=== PATIENT | male | born 1965 | race Caucasian/White ===

== ENCOUNTER → 2018-03-14 06:47 | Outpatient (CLI) | payer OTHER, SELFPAY ==
[2018-03-14 07:57] LABS: Cholesterol 196 mg/dL (140-199); HDL Cholesterol 51 mg/dL (40-60); LDL Cholesterol Calculated 127 mg/dL (<100); Triglycerides 91 mg/dL (35-150)
[2018-03-14 08:30] LABS: TSH w/ Reflex to FT4 2.36 uIU/mL (0.47-4.68)
== END ==
PROVIDERS: PCP Family Medicine; Visit Provider Family Medicine
DX: E78.00 Pure hypercholesterolemia, unspecified (principal); E78.5 Hyperlipidemia, unspecified; I65.23 Occlusion and stenosis of bilateral carotid arteries
CPT/HCPCS: 36415; 80061; 84443

== ENCOUNTER → 2018-08-08 06:57 | Outpatient (CLI) | payer OTHER, SELFPAY ==
[2018-08-08 08:51] LABS: Add Manual Diff / Slide Review NO; Basophils Percent Auto 1.3 % (0-2); Eosinophils Percent Auto 3.7 % (2-4); Hematocrit 42.9 % (41-53); Hemoglobin 14.6 g/dL (13.5-17.5); Lymphocytes Percent Auto 36.4 % (25-40); Mean Corpuscular HGB Conc 34.1 % (30-36); Mean Corpuscular Hemoglobin 32.9 PG (26-34); Mean Corpuscular Volume 96.3 fL (80-100); Monocytes Percent Auto 12.2 % (3-14); Neutrophils Absolute Auto 2700 /uL (3000-5900); Neutrophils Percent Auto 46.4 % (50-75); Platelet Count 366 X10^3/uL (150-400); Red Blood Cell Count 4.45 X10^6/uL (4.5-5.9); Red Cell Distribution Width 12.9 % (11.6-14.8); White Blood Cell Count 5.7 X10^3/uL (4.5-11.0)
[2018-08-08 09:05] LABS: Erythrocyte Sedimentation Rate 4 MM/HR (0-15)
[2018-08-08 12:12] LABS: Alanine Aminotransferase 43 IU/L (21-72); Albumin 4.4 g/dL (3.5-5.0); Albumin Globulin Ratio 1.5 (1.0-2.8); Alkaline Phosphatase 79 U/L (38-126); Aspartate Aminotransferase 49 IU/L (17-59); BUN Creatinine Ratio 14.4 (6-22); Bilirubin Total 0.3 mg/dL (0.2-1.3); Blood Urea Nitrogen 13 mg/dL (9-20); Calcium 9.3 mg/dL (8.4-10.2); Carbon Dioxide 24 mmol/L (22-32); Chloride 105 mmol/L (98-107); Estimated Glomerular Filt Rate > 60.0 mL/min (>60); Glucose 120 mg/dL (70-100); HEMOLYSIS < 15 (0-50); Potassium 4.5 mmol/L (3.4-5.1); Sodium 143 mmol/L (137-145); Total Protein 7.4 g/dL (6.3-8.2)
[2018-08-08 12:14] LABS: C-Reactive Protein Quant < 0.5 mg/dL (<1.0); Rheumatoid Factor < 8.6 IU/mL (<12.0)
[2018-08-10 12:01] LABS: CCP Antibody (IgG) < 16 Units (< 20)
== END ==
PROVIDERS: Internal Medicine; PCP Family Medicine; Visit Provider Family Medicine
DX: M25.542 Pain in joints of left hand (principal)
CPT/HCPCS: 36415; 80053; 83516; 85025; 85651; 86140; 86430

== ENCOUNTER → 2019-01-16 07:04 | Outpatient (CLI) | payer OTHER, SELFPAY ==
[2019-01-16 08:16] LABS: Add Manual Diff / Slide Review NO; Basophils Absolute Auto 100 /uL (0-100); Basophils Percent Auto 1.1 % (0-2); Eosinophils Absolute Auto 100 /uL (0-450); Eosinophils Percent Auto 2.5 % (2-4); Hematocrit 43.7 % (41-53); Hemoglobin 14.6 g/dL (13.5-17.5); Lymphocytes Absolute Auto 2200 /uL (1100-4500); Lymphocytes Percent Auto 45.4 % (25-40); Mean Corpuscular HGB Conc 33.5 % (30-36); Mean Corpuscular Hemoglobin 31.7 PG (26-34); Mean Corpuscular Volume 94.5 fL (80-100); Monocytes Absolute Auto 600 /uL (0-900); Monocytes Percent Auto 11.9 % (3-14); Neutrophils Absolute Auto 1900 /uL (1500-7000); Neutrophils Percent Auto 39.1 % (50-75); Platelet Count 312 X10^3/uL (150-400); Red Blood Cell Count 4.62 X10^6/uL (4.5-5.9); Red Cell Distribution Width 13.3 % (11.6-14.8); White Blood Cell Count 4.8 X10^3/uL (4.5-11.0)
[2019-01-16 08:26] LABS: Alanine Aminotransferase 40 IU/L (21-72); Albumin 4.7 g/dL (3.5-5.0); Albumin Globulin Ratio 1.4 (1.0-2.8); Alkaline Phosphatase 68 U/L (38-126); Aspartate Aminotransferase 57 IU/L (17-59); Bilirubin Total 0.6 mg/dL (0.2-1.3); Blood Urea Nitrogen 17 mg/dL (9-20); Calcium 9.4 mg/dL (8.4-10.2); Carbon Dioxide 25 mmol/L (22-32); Chloride 104 mmol/L (98-107); Cholesterol 160 mg/dL (140-199); Estimated Glomerular Filt Rate > 60.0 mL/min (>60); Globulin 3.4 g/dL (1.7-4.1); Glucose 96 mg/dL (70-100); HDL Cholesterol 47 mg/dL (40-60); HEMOLYSIS < 15 (0-50); LDL Cholesterol Calculated 97 mg/dL (<100); Potassium 4.3 mmol/L (3.4-5.1); Sodium 139 mmol/L (137-145); Total Protein 8.1 g/dL (6.3-8.2); Triglycerides 78 mg/dL (35-150)
[2019-01-16 09:55] LABS: Thyroid Stimulating Hormone 1.54 uIU/mL (0.47-4.68)
== END ==
PROVIDERS: PCP Family Medicine; Visit Provider Family Medicine
DX: E78.5 Hyperlipidemia, unspecified (principal); I65.23 Occlusion and stenosis of bilateral carotid arteries; K21.9 Gastro-esophageal reflux disease without esophagitis; Z13.6 Encounter for screening for cardiovascular disorders
CPT/HCPCS: 36415; 80053; 80061; 84443; 85025

== ENCOUNTER 2019-04-06 12:55 | Emergency (ER) | payer OTHER, SELFPAY ==
[2019-04-06 13:02] VITALS: BP 166/99; PULSE 86; RESP 20; TEMP 36.5; O2SAT 98
--- NOTE | 2019-04-06 13:24 | ED.SKABFB ---
HPI - Skin/Abscess/Foreign Bdy <IQRA Isaac-BC - Last Filed: 04/06/19 14:31> General Chief complaint: Skin/Abscess/Foreign Body Stated complaint: Infection on rt side of face Time Seen by Provider: 04/06/19 13:03 Source: patient Mode of arrival: ambulatory Limitations: no limitations History of Present Illness HPI narrative: The patient is a 54-year-old male former smoker with history of hyperlipidemia who presents with a chief complaint of a right-sided sinus infection. He states that he has been congested and coughing for the past 2 weeks or so. He states he got worse last Sunday with severe sinus pain. He has tried [id number] medications including Sudafed. He denies any fevers nausea vomiting or diarrhea. He states that since he has no splenius more susceptible to infections. He states he is having. I will it sinus drainage, pain in his right sinuses and pressure in his right ear. His sinus pain is worse if he leans forward. He states the pain radiates to his jaw and teeth. Related Data Previous Rx's Medication Instructions Recorded cyclobenzaprine 10 mg tablet 10 mg PO TIDP PRN #30 tab 05/24/18 famotidine 20 mg tablet 20 mg PO QDAY #30 tab 05/24/18 simvastatin 80 mg tablet 40 mg PO HS #45 tab 05/24/18 acyclovir 400 mg tablet 400 mg PO BID #60 tab 01/02/19 amoxicillin 875 mg-potassium 1 tab PO BID #14 tab 02/17/19 clavulanate 125 mg tablet doxycycline hyclate 100 mg PO BID #20 tab 04/06/19 Allergies Allergy/AdvReac Type Severity Reaction Status Date / Time No Known Drug Allergies Allergy Verified 01/31/19 14:01 Review of Systems <IQRA Isaac-BC - Last Filed: 04/06/19 14:31> Review of Systems GENERAL: Denies chills, fatigue, malaise, fever, sweats. HEENT: See HPI RESPIRATORY: See HPI CARDIOVASCULAR: Denies chest pain, palpitations, orthopnea, edema, GASTROINTESTINAL: Denies nausea, vomiting, abdominal pain, diarrhea, constipation, melena. : Denies dysuria, frequency, incontinence, hematuria, urinary retention. MUSCULOSKELETAL: denies weakness, joint pain, or bony pain SKIN: Denies rash, skin lesions, or other NEUROLOGIC: Denies weakness, headache, numbness, change in speech, confusion, seizures, incoordination. PSYCHIATRIC: No concerning psychosocial issues. 12 point review of systems is negative except for those stated above PFSH <ELENA Isaac - Last Filed: 04/06/19 14:31> Medical History Carotid artery disease (Chronic 2010) Stenosis of right internal carotid artery (Chronic 2010) Surgical History Anesthesia (Resolved) History of nasal surgery (Resolved 1981) History of shoulder surgery (Resolved 2002) History of splenectomy (Resolved 1984) Status post hernia repair (Resolved 1977) Status post total hip resurfacing (Resolved 06/2017) Social History marital status: Smoking Status: Former smoker alcohol intake: current (1-2 A DAY ) substance use type: does not use Social History marital status: Smoking Status: Former smoker alcohol intake: current (1-2 A DAY ) substance use type: does not use Exam <ELENA Isaac - Last Filed: 04/06/19 14:31> Narrative Exam Narrative: GENERAL: This is a well-nourished, well-developed patient, in no acute distress HEAD: Atraumatic. Normocephalic. No temporal or scalp tenderness. EYES: Pupils equal round and reactive. Extraocular motions intact. No scleral icterus. No injection or drainage. ENT: Nose without bleeding, purulent drainage or septal hematoma. Throat without erythema, tonsillar hypertrophy or exudate. Uvula midline. Airway patent. Bilateral TMs pearly white. Pain to palpation maxillary and frontal sinuses on the right side. NECK: Trachea midline. Bilateral anterior lymphadenopathy noted Supple, nontender, no meningeal signs. CARDIOVASCULAR: Regular rate and rhythm RESPIRATORY: Clear to auscultation. Breath sounds equal bilaterally. No wheezes, rales, or rhonchi. No cough. No increased respiratory effort. No accessory muscle use. EXTREMITIES: No clubbing, cyanosis, or edema. No joint tenderness, effusion, or edema noted. BACK: Nontender without deformity or crepitance. No flank tenderness. NEURO: AOx3. SKIN: No rash or erythema. Initial Vital Signs Initial Vital Signs: Vital Signs Temperature 97.7 F 04/06/19 13:02 Pulse Rate 86 04/06/19 13:02 Respiratory Rate 20 04/06/19 13:02 Blood Pressure 166/99 H 04/06/19 13:02 Pulse Oximetry 98 04/06/19 13:02 <Nena Winters DO - Last Filed: 04/06/19 19:13> Initial Vital Signs Initial Vital Signs: Vital Signs Temperature 97.7 F 04/06/19 13:02 Pulse Rate 86 04/06/19 13:02 Respiratory Rate 20 04/06/19 13:02 Blood Pressure 166/99 H 04/06/19 13:02 Pulse Oximetry 98 04/06/19 13:02 Course <ELENA Isaac - Last Filed: 04/06/19 14:31> Vital Signs - 8 hr 04/06/19 13:02 04/06/19 13:59 Temperature 97.7 F Pulse Rate 86 74 Respiratory Rate 20 20 Blood Pressure 166/99 H 131/85 Pulse Oximetry 98 96 <Nena Winters DO - Last Filed: 04/06/19 19:13> Vital Signs - 8 hr 04/06/19 13:02 04/06/19 13:59 Temperature 97.7 F Pulse Rate 86 74 Respiratory Rate 20 20 Blood Pressure 166/99 H 131/85 Pulse Oximetry 98 96 MDM - Skin/Abscess/Foreign Bdy <ELENA Isaac - Last Filed: 04/06/19 14:31> ECG Data Pacemaker function: pacemaker associated dysrhythmia MDM Narrative Medical decision making narrative: The patient is a 54-year-old male who presents with a chief complaint of sinus symptoms. He has had these symptoms ongoing for several weeks. Chart review illustrate that he received Augmentin for similar complaint in January. The patient has been trying conservative treatment including Sudafed. Given the duration of his symptoms, severity of his pain and double sick inning, I will treat him for sinusitis at this time. Given that he used Augmentin in January, I will use doxycycline. Given his repeat sinus concerns, I encouraged the patient to follow up with primary care provider. I also encouraged him to use Flonase and Jere med sinus rinse. Discussed come back to the ER for any acute concerns such as chest pain or shortness of breath. Patient has no questions or concerns upon discharge. Discharge Plan Departure Patient Disposition: Home Clinical Impression: Bilateral carotid artery stenosis Sinusitis Qualifiers: Sinusitis location: other Chronicity: acute Recurrence: recurrent Qualified Code(s): J01.81 - Other acute recurrent sinusitis Discharge Date/Time: 04/06/19 13:59 Interventions: ED Discharge Assessment Last Done: 04/06/19 13:59 Instructions: Sinusitis (Alternative Therapy), DI for Sinusitis Activity Restrictions/Additional Instructions: I have given you a prescription for doxycycline. This was sent to [facility]. Please use Flonase as well as Jere med sinus rinse. Please follow up with primary care provider. Please come back to the emergency department for any acute concerns. Prescriptions: New doxycycline hyclate 100 mg tablet 100 mg PO BID Qty: 20 RF: 0 No Action cyclobenzaprine 10 mg tablet 10 mg PO TIDP PRN (Reason: muscle spasm) Qty: 30 RF: 3 famotidine [Pepcid] 20 mg tablet 20 mg PO QDAY Qty: 30 RF: 3 simvastatin 80 mg tablet 40 mg PO HS Qty: 45 RF: 3 acyclovir 400 mg tablet 400 mg PO BID Qty: 60 RF: 11 amoxicillin-pot clavulanate [Augmentin] 875-125 mg tablet 1 tab PO BID Qty: 14 RF: 0 Referrals: Sebastien Mckeon MD [Primary Care Provider] - <Nena Winters DO - Last Filed: 04/06/19 19:13> Cosign ED Attending Cosignature Attestation: I was immediately available in the department for consultation. This documentation has been reviewed and I agree with assessment and plan. Supervised by Nena Winters DO
[2019-04-06 13:59] VITALS: BP 131/85; PULSE 74; RESP 20; O2SAT 96
== END 2019-04-06 13:59 | disposition home or self-care (01) ==
PROVIDERS: Emergency Provider Nurse Practitioner Family; PCP Family Medicine
DX: J01.81 Other acute recurrent sinusitis (principal)
CPT/HCPCS: 99282; 99283

== ENCOUNTER → 2019-04-16 08:39 | Outpatient (CLI) | payer OTHER, SELFPAY ==
--- NOTE | 2019-04-16 | DI.US.S_ITS ---
PROCEDURE: US CAROTID DOPPLER BI INDICATIONS: Occlusion and stenosis of bilateral carotid TECHNIQUE: Color and pulse Doppler interrogation was performed of both carotid systems, with image documentation and velocity measurements. COMPARISON: [facility], [place], CAROTID ARTERY DOPPLER BILAT, 04/18/2011, 11:15. [facility], [place], CAROTID ARTERY DOPPLER BILAT, 08/19/2012, 8:48. [facility], [place], CAROTID ARTERY DOPPLER BILAT, 07/30/2013, 11:34. [facility], [place], CAROTID ARTERY DOPPLER BILAT, 10/20/2016, 14:42. FINDINGS: Stenosis calculations are based on SRU (Society of Radiologists in Ultrasound) criteria. The flow velocities and the arterial waveforms are normal within both carotid arterial systems. Atherosclerotic plaque is seen on both sides. The estimated degree of internal carotid artery stenosis is less than 50%. Antegrade flow is confirmed within both vertebral arteries. IMPRESSION: No hemodynamically significant stenosis is seen. Study similar to prior. Atherosclerotic plaque is noted bilaterally. Dictated by: Jethro Ayala M.D. on 04/16/2019 at 11:35 Approved by: Jethro Ayala M.D. on 04/16/2019 at 11:36
== END ==
PROVIDERS: PCP Family Medicine; Visit Provider Family Medicine
DX: I65.23 Occlusion and stenosis of bilateral carotid arteries (principal)
CPT/HCPCS: 93880

== ENCOUNTER → 2019-05-16 15:04 | Outpatient (CLI) | payer OTHER, SELFPAY ==
--- NOTE | 2019-05-16 15:06 | DI.RAD.S_ITS ---
PROCEDURE: XR LUMBAR SPINE 2-3V INDICATIONS: acute lbp on the right TECHNIQUE: 3 views of the lumbar spine were acquired. COMPARISON: [facility], , L-SPINE 2-3 VIEWS, 05/20/2009, 23:08. FINDINGS: Bones: 5 [id number] vertebrae are present. There is normal bony alignment. Mild degenerative disc disease and slight retrolisthesis of L2 on L3 is again seen, degenerative in origin, without worsening from 2008. No vertebral body compression fractures. No suspicious bony lesions. Soft tissues: Overlying bowel gas pattern is normal. No suspicious soft tissue calcifications. IMPRESSION: Stable mild degenerative disc disease and facet osteoarthritis over the upper lumbosacral spine, moderate facet osteoarthritis from L3 inferiorly. Dictated by: Mika Guzmán M.D. on 05/16/2019 at 16:05 Approved by: Mika Guzmán M.D. on 05/16/2019 at 16:06
== END ==
PROVIDERS: PCP Family Medicine; Visit Provider Family Medicine
DX: M54.5 Low back pain (principal); M51.37 Other intervertebral disc degeneration, lumbosacral region; M47.817 Spondylosis without myelopathy or radiculopathy, lumbosacral region; M47.816 Spondylosis without myelopathy or radiculopathy, lumbar region
CPT/HCPCS: 72100

== ENCOUNTER → 2020-02-03 09:30 | Outpatient (CLI) | payer OTHER, SELFPAY ==
--- NOTE | 2020-02-03 09:33 | DI.RAD.S_ITS ---
PROCEDURE: XR CHEST 2V INDICATIONS: cough TECHNIQUE: 2 views of the chest were acquired. COMPARISON: [facility], , CHEST 1 VIEW, 11/20/2016, 9:58. FINDINGS: Surgical changes and devices: None. Lungs and pleura: Lungs are clear. No pleural effusions or pneumothorax. Mediastinum: Mediastinal contours are normal. Heart size is normal. Bones and chest wall: No suspicious bony abnormalities. Soft tissues appear unremarkable. IMPRESSION: No acute cardiopulmonary disease. Dictated by: Macie Ramirez M.D. on 02/03/2020 at 10:58 Approved by: Macie Ramirez M.D. on 02/03/2020 at 10:59
== END ==
PROVIDERS: PCP Family Medicine; Referring Provider Family Medicine; Visit Provider Family Medicine
DX: R05 Cough (principal)
CPT/HCPCS: 71046

== ENCOUNTER → 2020-10-12 10:30 | Outpatient (CLI) | payer OTHER, SELFPAY ==
[2020-10-12 11:02] LABS: COVID19 -Nasal RAPID Negative (Negative)
== END ==
PROVIDERS: PCP Family Medicine; Visit Provider Family Medicine
DX: Z20.822 Contact with and (suspected) exposure to COVID-19 (principal)
CPT/HCPCS: 87635

== ENCOUNTER → 2020-10-24 14:04 | Outpatient (CLI) | payer OTHER, SELFPAY ==
[2020-10-24 14:51] LABS: COVID19 -Nasal RAPID Negative (Negative)
== END ==
PROVIDERS: PCP Family Medicine; Visit Provider Physician Assistant
DX: R05 Cough (principal); Z20.822 Contact with and (suspected) exposure to COVID-19
CPT/HCPCS: 87635

== ENCOUNTER 2020-10-27 06:57 | Emergency (ER) | payer OTHER, SELFPAY ==
[2020-10-27 07:06] VITALS: BP 155/85; PULSE 84; RESP 18; TEMP 36.8; O2SAT 100; BMI 29.6
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
== END 2020-10-27 07:26 | disposition home or self-care (01) ==
PROVIDERS: Emergency Provider Emergency Medicine; PCP Family Medicine
DX: J40 Bronchitis, not specified as acute or chronic (principal); R50.9 Fever, unspecified; I25.10 Atherosclerotic heart disease of native coronary artery without angina pectoris
CPT/HCPCS: 99281

== ENCOUNTER → 2020-11-17 14:58 | Outpatient (CLI) | payer OTHER, SELFPAY ==
--- NOTE | 2020-11-17 15:00 | DI.RAD.S_ITS ---
PROCEDURE: XR HIP W PEL IF DONE RT 2V INDICATIONS: right hip pain TECHNIQUE: AP pelvis with lateral view(s) of the right hip(s). COMPARISON: [facility], [place], XR LUMBAR SPINE 2-3V, 05/16/2019, 15:06. [facility], [place], XR PELVIS W LATERAL HIP RT, 02/21/2016, 8:46. [facility], [place], HIP 2V RIGHT, 02/18/2015, 10:42. [facility], CR, HIP 2V RIGHT, 09/06/2010, 17:14. FINDINGS: Bones: No fractures or dislocations. Pelvic ring appears intact. No suspicious bony lesions. Soft tissues: The visualized bowel gas pattern is normal. No suspicious soft tissue calcifications. IMPRESSION: Right hip arthroplasty, showing no evidence of device loosening or disruption. This arthroplasty was present in 2019 on lumbosacral spine plain film imaging. The entirety of the arthroplasty however was not included on that prior study. Dictated by: iMka Guzmán M.D. on 11/17/2020 at 17:26 Approved by: Mika Guzmán M.D. on 11/17/2020 at 17:27
== END ==
PROVIDERS: PCP Family Medicine; Referring Provider Family Medicine; Visit Provider Family Medicine
DX: M25.551 Pain in right hip (principal); Z96.641 Presence of right artificial hip joint
CPT/HCPCS: 73502

== ENCOUNTER → 2021-02-24 06:43 | Outpatient (CLI) | payer OTHER, SELFPAY ==
[2021-02-24 07:48] LABS: Add Manual Diff / Slide Review NO; Basophils Absolute Auto 100 /uL (0-100); Basophils Percent Auto 1.4 % (0-2); Eosinophils Absolute Auto 200 /uL (0-450); Eosinophils Percent Auto 2.7 % (2-4); Hemoglobin 14.2 g/dL (13.5-17.5); Lymphocytes Absolute Auto 2800 /uL (1100-4500); Mean Corpuscular HGB Conc 33.9 % (30-36); Mean Corpuscular Hemoglobin 32.7 PG (26-34); Mean Corpuscular Volume 96.5 fL (80-100); Monocytes Absolute Auto 700 /uL (0-900); Monocytes Percent Auto 11.2 % (3-14); Neutrophils Absolute Auto 2400 /uL (1500-7000); Neutrophils Percent Auto 39.7 % (50-75); Platelet Count 295 X10^3/uL (150-400); Red Blood Cell Count 4.35 X10^6/uL (4.5-5.9); Red Cell Distribution Width 13.7 % (11.6-14.8); White Blood Cell Count 6.1 X10^3/uL (4.5-11.0)
[2021-02-24 07:59] LABS: Alanine Aminotransferase 42 IU/L (<50); Albumin 4.4 g/dL (3.5-5.0); Albumin Globulin Ratio 1.3 (1.0-2.8); Alkaline Phosphatase 82 U/L (38-126); Aspartate Aminotransferase 49 IU/L (17-59); Bilirubin Total 0.5 mg/dL (0.2-1.3); Blood Urea Nitrogen 22 mg/dL (9-20); Calcium 9.7 mg/dL (8.4-10.2); Carbon Dioxide 27 mmol/L (22-32); Chloride 106 mmol/L (98-107); Cholesterol 193 mg/dL (140-199); Estimated Glomerular Filt Rate > 60.0 mL/min (>60); Globulin 3.4 g/dL (1.7-4.1); Glucose 105 mg/dL (70-100); HDL Cholesterol 46 mg/dL (40-60); HEMOLYSIS < 15 (0-50); LDL Cholesterol Calculated 119 mg/dL (<100); Potassium 4.9 mmol/L (3.4-5.1); Sodium 139 mmol/L (137-145); Total Protein 7.8 g/dL (6.3-8.2); Triglycerides 139 mg/dL (35-150)
[2021-02-24 08:26] LABS: TSH w/ Reflex to FT4 2.25 uIU/mL (0.47-4.68)
== END ==
PROVIDERS: PCP Family Medicine; Referring Provider Family Medicine; Visit Provider Family Medicine
DX: E78.5 Hyperlipidemia, unspecified (principal); I65.23 Occlusion and stenosis of bilateral carotid arteries; I65.21 Occlusion and stenosis of right carotid artery
CPT/HCPCS: 36415; 80053; 80061; 84153; 84443; 85025

== ENCOUNTER → 2021-05-04 11:47 | Outpatient (CLI) | payer OTHER, SELFPAY ==
[2021-05-04 13:10] LABS: COVID19 -Nasal RAPID Negative (Negative)
== END ==
PROVIDERS: PCP Family Medicine; Referring Provider Family Medicine; Visit Provider Student in an Organized Health Care Education/Training Program
DX: Z01.812 Encounter for preprocedural laboratory examination (principal); Z20.822 Contact with and (suspected) exposure to COVID-19
CPT/HCPCS: 87635

== ENCOUNTER → 2021-05-05 13:02 | Outpatient (CLI) | payer OTHER, SELFPAY ==
--- NOTE | 2021-05-05 14:24 | PM.TREADMILL ---
Cardiac Stress Test Report Referral & Results Date Patient Seen: 05/05/21 Requesting provider: Sebastien Mckeon Indication: Chest pressure with activity Rest ECG: Unremarkable Procedure Note: Today following both written and verbal informed consent, the patient was exercised according to a standard Teres[facility] protocol. The patient exercised for a total of 9 minutes 10 seconds achieving a maximum heart rate of 154. Patient's maximum systolic blood pressure was 172. This was an estimated 10.1 MET's. There are no ST-T segment changes rare PAC and PVC Functional aerobic impairment rates about 0 on the active scale Impression: No evidence of ischemia Average exercise capacity Please note: Actual ECG tracings can be found in the PACS system.
== END ==
PROVIDERS: PCP Family Medicine; Referring Provider Family Medicine; Visit Provider Family Medicine
DX: R07.89 Other chest pain (principal)
CPT/HCPCS: 93016; 93017; 93018

== ENCOUNTER → 2021-07-22 10:37 | Outpatient (CLI) | payer OTHER, SELFPAY ==
--- NOTE | 2021-07-22 | DI.US.S_ITS ---
PROCEDURE: US CAROTID DOPPLER BI INDICATIONS: CAROTID STENOSIS TECHNIQUE: Color and pulse Doppler interrogation was performed of both carotid systems, with image documentation and velocity measurements. COMPARISON: [facility], , CAROTID DOPPLER BI, 04/16/2019, 9:11. FINDINGS: Stenosis calculations are based on SRU (Society of Radiologists in Ultrasound) criteria. The flow velocities and the arterial waveforms are normal within both carotid arterial systems. Minimal atherosclerotic plaque is seen on both sides. The estimated degree of internal carotid artery stenosis is less than 50%. Antegrade flow is confirmed within both vertebral arteries. IMPRESSION: No hemodynamically significant stenosis is seen. No significant change from the prior. Dictated by: Jethro Ayala M.D. on 07/22/2021 at 11:42 Approved by: Jethro Ayala M.D. on 07/22/2021 at 11:43
== END ==
PROVIDERS: PCP Family Medicine; Referring Provider Nurse Practitioner Family; Visit Provider Nurse Practitioner Family
DX: I65.21 Occlusion and stenosis of right carotid artery (principal)
CPT/HCPCS: 93880

== ENCOUNTER → 2021-08-30 17:59 | Outpatient (CLI) | payer OTHER, SELFPAY ==
[2021-08-30 18:33] LABS: COVID19 -Nasal RAPID Negative (Negative)
== END ==
PROVIDERS: PCP Family Medicine; Referring Provider Family Medicine; Visit Provider Physician Assistant
DX: Z20.822 Contact with and (suspected) exposure to COVID-19 (principal)
CPT/HCPCS: 87635

== ENCOUNTER 2022-04-28 05:58 | Emergency (ER) | payer OTHER, SELFPAY ==
[2022-04-28 06:00] VITALS: BP 171/84; PULSE 67; RESP 15; TEMP 36.6; O2SAT 96; BMI 31.2
--- NOTE | 2022-04-28 06:13 | DI.RAD.S_ITS ---
PROCEDURE: XR CHEST 1V INDICATIONS: chest pain TECHNIQUE: One view of the chest was acquired. COMPARISON: [facility], [facility], XR CHEST 2V, 02/03/2020, 9:25. [facility], [facility], CHEST 1 VIEW, 11/20/2016, 9:58. FINDINGS: Surgical changes and devices: None. Lungs and pleura: Lungs are clear. No pleural effusions or pneumothorax. Mediastinum: Mediastinal contours appear normal. Heart size is normal. Bones and chest wall: No suspicious bony lesions. Overlying soft tissues appear unremarkable. Left upper quadrant surgical clips. IMPRESSION: No acute radiographic abnormality. Agree with preliminary report. Dictated by: Jose Ramirez M.D. on 04/28/2022 at 8:13 Approved by: Jose Ramirez M.D. on 04/28/2022 at 8:17
--- NOTE | 2022-04-28 06:20 | ED_ITS ---
HPI - Chest Pain General Chief Complaint: Chest Pain Stated Complaint: chest pain Time Seen by Provider: 04/28/22 06:00 Source: patient and family Mode of arrival: Ambulatory Limitations: no limitations History of Present Illness HPI narrative: 57-year-old male nonsmoker with history of GERD and hypertension presents with his with a chief complaint palpitations this morning that lasted longer than they typically do. He states that he has been having issues with feeling his heart flip-flopping for quite some time and has had multiple workups without any diagnosis as of yet. He states that his symptoms felt like normal today though lasted a bit longer than normal hence his decision to be seen and evalu ated. He denies any chest pain, dizziness, weakness or lightheadedness. He denies any nausea, vomiting or unexplained diaphoresis. He states he has no exertional symptoms and frequently is very active. He states that he was doing a lot outside yesterday in the heat which is the only abnormal thing for him. He denies any change in medications or diet. He states he has a few glasses of wine per day which is normal for him and has had no change in the rate. He denies any recent long distance travel or history of blood clot. He denies any significant caffeine use or change in his consumption. He is completely symptom-free on his arrival Related Data Previous Rx's Medication Instructions Recorded cyclobenzaprine 10 mg tablet 10 mg PO TIDP PRN muscle spasm #30 10/02/19 tabs azithromycin 250 mg tablet See Rx Instructions PO .COMPLEX #6 08/30/21 tabs pantoprazole 40 mg tablet,delayed 40 mg PO BID #90 tabs 02/02/22 release simvastatin 40 mg tablet 40 mg PO HS #90 tabs 02/02/22 valsartan 160 mg tablet See Rx Instructions .Route 02/02/22 .COMPLEX #90 tabs acyclovir 400 mg tablet See Rx Instructions .Route 04/18/22 .COMPLEX #180 tabs Allergies Allergy/AdvReac Type Severity Reaction Status Date / Time No Known Drug Allergies Allergy Verified 08/30/21 18:05 Review of Systems Review of Systems Narrative: GENERAL: Denies chills, fatigue, malaise, fever, sweats. HEENT: Denies sinus pain, ear pain, sore throat, difficulty swallowing, dizziness. RESPIRATORY: Denies dyspnea, cough, wheezing, hemoptysis, sputum. CARDIOVASCULAR: See HPI GASTROINTESTINAL: Denies nausea, vomiting, abdominal pain, diarrhea, constipation, melena. : Denies dysuria, frequency, incontinence, hematuria, urinary retention. MUSCULOSKELETAL: denies weakness, joint pain, or bony pain SKIN: Denies rash, skin lesions, or other NEUROLOGIC: Denies weakness, headache, numbness, change in speech, confusion, seizures, incoordination. PSYCHIATRIC: No concerning psychosocial issues. 12 point review of systems is negative except for those stated above Patient History Medical History Carotid artery disease (2010) Stenosis of right internal carotid artery (2010) Surgical History Anesthesia History of nasal surgery (1981) History of shoulder surgery (2002) History of splenectomy (1984) Status post hernia repair (1977) Status post total hip resurfacing (06/2017) Social History marital status: Smoking Status: Former smoker alcohol intake: current substance use type: does not use Smoking Status: Former smoker alcohol intake frequency: 0-2 drinks per day Alcohol type: wine Substance Use Type: does not use Exam Narrative Exam Narrative: GENERAL: [57] year old patient appears stated age. Well-developed patient, in mild distress. HEAD: Atraumatic. Normocephalic. EYES: Pupils equal round and reactive. Extraocular motions intact. No scleral icterus. No injection or drainage. ENT: Nose without bleeding, purulent drainage. Throat without erythema, tonsillar hypertrophy or exudate. Airway patent. NECK: Trachea midline. Non tender CARDIOVASCULAR: Regular rate and rhythm without murmurs, gallops, or rubs. RESPIRATORY: Clear to auscultation. Breath sounds equal bilaterally. No wheezes, rales, or rhonchi. GASTROINTESTINAL: Abdomen soft, non-tender, nondistended. EXTREMITIES: No edema or joint tenderness. BACK: Nontender without deformity or crepitance. No flank tenderness. NEURO: AOx3. SKIN: No rash or erythema of visible areas Initial Vital Signs Initial Vital Signs: Vital Signs Temperature 97.8 F 04/28/22 06:00 Pulse Rate 67 04/28/22 06:00 Respiratory Rate 15 04/28/22 06:00 Blood Pressure 171/84 H 04/28/22 06:00 Pulse Oximetry 96 04/28/22 06:00 Oxygen Delivery Method 04/28/22 06:00 Course Orders Ordered: Discontinued Medications Sodium Chloride (Normal Saline 0.9%) 1,000 mls @ 150 mls/hr IV CONT YOSSI Last Infusion: 04/28/22 07:33 Dose: 0 mls/hr Documented By: Admin: 04/28/22 06:24 Dose: 150 mls/hr Documented By: ESPERANZA Vital Signs Vital signs: Vital Signs - 8 hr 04/28/22 06:00 Temperature 97.8 F Pulse Rate 67 Respiratory Rate 15 Blood Pressure 171/84 H Pulse Oximetry 96 Oxygen Delivery Method Room Air MDM - Chest Pain Lab Data Result diagrams: 04/28/22 06:05 04/28/22 06:05 Labs: Lab Results 04/28/22 04/28/22 04/28/22 Range/Units 06:05 06:05 06:05 WBC 7.5 (4.5-11.0) X10^3/uL RBC 4.36 L (4.5-5.9) X10^6/uL Hgb 14.5 (13.5-17.5) g/dL Hct 41.7 (41-53) % MCV 95.7 (80-100) fL MCH 33.3 (26-34) PG MCHC 34.9 (30-36) % RDW 12.8 (11.6-14.8) % Plt Count 321 (150-400) X10^3/uL Neut % (Auto) 38.9 L (50-75) % Lymph % (Auto) 43.0 H (25-40) % [place] % (Auto) 13.2 (3-14) % Eos % (Auto) 3.5 (2-4) % Baso % (Auto) 1.4 (0-2) % Neut # (Auto) 2900 (8554-2611) /uL Lymph # (Auto) 3200 (3953-1923) /uL [place] # (Auto) 1000 H (0-900) /uL Eos # (Auto) 300 (0-450) /uL Baso # (Auto) 100 (0-100) /uL Sodium 139 (137-145) mmol/L Potassium 4.1 (3.4-5.1) mmol/L Chloride 106 (98-107) mmol/L Carbon Dioxide 20 L (22-32) mmol/L BUN 23 H (9-20) mg/dL Creatinine 0.74 (0.66-1.25) mg/dL Estimated GFR > 60 (>60) mL/min BUN/Creatinine Ratio 31.1 H (6-22) Glucose 85 (70-100) mg/dL Calcium 9.1 (8.4-10.2) mg/dL Total Bilirubin 0.4 (0.2-1.3) mg/dL AST 46 (17-59) IU/L ALT 35 (<50) IU/L Alkaline Phosphatase 94 (38-126) U/L Total Creatine Kinase 408 H (55-170) U/L CK-MB (CK-2) 3.27 H (<2.37) ng/mL CK-MB (CK-2) Rel Index 0.8 L (1.5-5.0) % Troponin I < 0.012 (0.01-0.034) ng/mL NT-Pro-B Natriuret Pep < 11 (<125) pg/mL Total Protein 8.0 (6.3-8.2) g/dL Albumin 4.7 (3.5-5.0) g/dL Globulin 3.3 (1.7-4.1) g/dL Albumin/Globulin Ratio 1.4 (1.0-2.8) Lipase 173 (23-300) U/L TSH 3.87 (0.47-4.68) uIU/mL Imaging Data Chest x-ray: Radiologist's Impression: Ezio Huddleston?(Dick)??57??M??1965 ? Allergy/Adv: No Known Drug Allergies (More??) Close Chest X-Ray (Signed) Jose Ramirez - 04/28/22 Carotid Doppler Study (Signed) Jethro Ayala - 07/22/21 Hip X-Ray (Signed) Mika Guzmán - 11/17/20 EKG Rpt. 09/14/20 Chest X-Ray (Signed) Ryan Ramirez - 02/03/20 Lumbar Spine X-Ray (Signed) Mika Guzmán - 05/16/19 Carotid Doppler Study (Signed) Jethro Ayala - 04/16/19 Launch?Image [address] [address] XRay Report Signed Patient: Ezio Huddleston MR#: [id number] : 1965 Acct:[id number] Age/Sex: 57 / M Date of Service: 04/28/22 Loc: ED Accession Number: [id number] ?? Procedure: XR chest 1V Ordering Provider: Joe Zapata D.O. PROCEDURE:? XR CHEST 1V ? INDICATIONS:? chest pain ? TECHNIQUE:? One view of the chest was acquired.? ? COMPARISON:? [facility], , XR CHEST 2V, 02/03/2020, 9:25.? [facility], , CHEST 1 VIEW, 11/20/2016, 9:58. ? FINDINGS:? ? Surgical changes and devices:? None.? ? Lungs and pleura:? Lungs are clear.? No pleural effusions or pneumothorax.? ? Mediastinum:? Mediastinal contours appear normal.? Heart size is normal.? ? Bones and chest wall:? No suspicious bony lesions.? Overlying soft tissues appear unremarkable.? ? Left upper quadrant surgical clips. ? IMPRESSION:? No acute radiographic abnormality.? Agree with preliminary report. ? ? Dictated by: Jose Ramirez M.D. on 04/28/2022 at 8:13 ? ? Approved by: Jose Ramirez M.D. on 04/28/2022 at 8:17 ? Discharge Plan Departure Patient Disposition: Home Clinical Impression: Heart palpitations Instructions: DI for Arrhythmias Activity Restrictions/Additional Instructions: *You have been diagnosed with [ palpitations] *What to do: *Please continue to take your regular medications as directed. [ ] New medication prescriptions sent to your pharmacy: [ ] [ ] New medication written as a paper prescription [x ] No new medications given *Please follow up with your primary care provider in 2-3 days, call for an appointment. Let them know you were seen in the Emergency Department and that we ask that you be seen in follow up. We will electronically transmit a record of today's note if your PCP is in our system *If you do not have a primary care provider please contact the [facility] Resource line at [phone]. They will ask some questions about your medical history and help get you set up with a doctor in the community. *Return to Emergency Department if you should have any new, worsening or concerning symptoms, such as [fever greater than 101 F, shaking chills, worsening pain, persistent vomiting or other bothersome symptoms] Prescriptions: No Action azithromycin 250 mg tablet See Rx Instructions PO .COMPLEX Qty: 6 0RF Rx Instructions: Take 2 tablets (500mg) by mouth today (day 1), then 1 tablet (250mg) by mouth for 4 days (days 2-5). Finish all of this medication. cyclobenzaprine 10 mg tablet 10 mg PO TIDP PRN (Reason: muscle spasm) Qty: 30 3RF pantoprazole 40 mg tablet,delayed release (DR/EC) 40 mg PO BID Qty: 90 3RF simvastatin 40 mg tablet 40 mg PO HS Qty: 90 3RF valsartan 160 mg tablet See Rx Instructions .ROUTE .COMPLEX Qty: 90 3RF Dose Instruction: take 1 tablet by mouth once daily Rx Instructions: take 1 tablet by mouth once daily acyclovir 400 mg tablet See Rx Instructions .ROUTE .COMPLEX Qty: 180 0RF Dose Instruction: TAKE ONE TABLET BY MOUTH TWICE DAILY FOR SUPRESSION Rx Instructions: TAKE ONE TABLET BY MOUTH TWICE DAILY FOR SUPRESSION Referrals: Gareth Shukla MD [Primary Care Provider] - Visit Report Forms: Patient Portal/API
[2022-04-28] MEDS: SODIUM CHLORIDE 0.9% 1,000 ML 150 ML IV (06:24)
[2022-04-28 06:43] LABS: Alanine Aminotransferase 35 IU/L (<50); Albumin 4.7 g/dL (3.5-5.0); Albumin Globulin Ratio 1.4 (1.0-2.8); Alkaline Phosphatase 94 U/L (38-126); Aspartate Aminotransferase 46 IU/L (17-59); BUN Creatinine Ratio 31.1 (6-22); Bilirubin Total 0.4 mg/dL (0.2-1.3); Blood Urea Nitrogen 23 mg/dL (9-20); Calcium 9.1 mg/dL (8.4-10.2); Carbon Dioxide 20 mmol/L (22-32); Chloride 106 mmol/L (98-107); Creatine Kinase 408 U/L (55-170); Estimated Glomerular Filt Rate > 60 mL/min (>60); Globulin 3.3 g/dL (1.7-4.1); Glucose 85 mg/dL (70-100); HEMOLYSIS 18 (0-50); Lipase 173 U/L (23-300); Potassium 4.1 mmol/L (3.4-5.1); Sodium 139 mmol/L (137-145)
[2022-04-28 06:45] LABS: Add Manual Diff / Slide Review NO; Basophils Absolute Auto 100 /uL (0-100); Basophils Percent Auto 1.4 % (0-2); Eosinophils Absolute Auto 300 /uL (0-450); Eosinophils Percent Auto 3.5 % (2-4); Hematocrit 41.7 % (41-53); Hemoglobin 14.5 g/dL (13.5-17.5); Lymphocytes Absolute Auto 3200 /uL (1100-4500); Mean Corpuscular HGB Conc 34.9 % (30-36); Mean Corpuscular Hemoglobin 33.3 PG (26-34); Mean Corpuscular Volume 95.7 fL (80-100); Monocytes Absolute Auto 1000 /uL (0-900); Monocytes Percent Auto 13.2 % (3-14); Neutrophils Absolute Auto 2900 /uL (1500-7000); Neutrophils Percent Auto 38.9 % (50-75); Platelet Count 321 X10^3/uL (150-400); Red Blood Cell Count 4.36 X10^6/uL (4.5-5.9); Red Cell Distribution Width 12.8 % (11.6-14.8); White Blood Cell Count 7.5 X10^3/uL (4.5-11.0)
[2022-04-28 06:55] LABS: NT-proBNP (BNP-Adult 18+) < 11 pg/mL (<125); Troponin I < 0.012 ng/mL (0.01-0.034)
[2022-04-28 06:58] LABS: CKMB % Relative Index 0.8 % (1.5-5.0); Creatine Kinase MB 3.27 ng/mL (<2.37)
[2022-04-28 07:14] LABS: TSH w/ Reflex to FT4 3.87 uIU/mL (0.47-4.68)
== END 2022-04-28 07:42 | disposition home or self-care (01) ==
PROVIDERS: Emergency Provider Emergency Medicine; PCP Family Medicine
DX: R00.2 Palpitations (principal)
CPT/HCPCS: 36415; 71045; 80053; 82550; 82553; 83690; 83880; 84443; 84484; 85025; 93005; 96360; 99284

== ENCOUNTER → 2022-09-28 07:00 | Outpatient (CLI) | payer OTHER, SELFPAY ==
[2022-09-28 08:20] LABS: Add Manual Diff / Slide Review NO; Basophils Absolute Auto 100 /uL (0-100); Basophils Percent Auto 1.1 % (0-2); Eosinophils Absolute Auto 200 /uL (0-450); Eosinophils Percent Auto 3.2 % (2-4); Hematocrit 41.7 % (41-53); Hemoglobin 14.5 g/dL (13.5-17.5); Lymphocytes Absolute Auto 2200 /uL (1100-4500); Lymphocytes Percent Auto 41.1 % (25-40); Mean Corpuscular HGB Conc 34.7 % (30-36); Mean Corpuscular Hemoglobin 32.9 PG (26-34); Mean Corpuscular Volume 94.9 fL (80-100); Monocytes Absolute Auto 600 /uL (0-900); Monocytes Percent Auto 11.9 % (3-14); Neutrophils Absolute Auto 2300 /uL (1500-7000); Neutrophils Percent Auto 42.7 % (50-75); Platelet Count 327 X10^3/uL (150-400); Red Blood Cell Count 4.39 X10^6/uL (4.5-5.9); Red Cell Distribution Width 12.9 % (11.6-14.8); White Blood Cell Count 5.3 X10^3/uL (4.5-11.0)
[2022-09-28 08:49] LABS: Alanine Aminotransferase 38 IU/L (<50); Albumin 4.5 g/dL (3.5-5.0); Albumin Globulin Ratio 1.3 (1.0-2.8); Alkaline Phosphatase 68 U/L (38-126); Aspartate Aminotransferase 38 IU/L (17-59); BUN Creatinine Ratio 34.7 (6-22); Bilirubin Total 0.6 mg/dL (0.2-1.3); Blood Urea Nitrogen 26 mg/dL (9-20); Calcium 9.4 mg/dL (8.4-10.2); Carbon Dioxide 23 mmol/L (22-32); Chloride 105 mmol/L (98-107); Cholesterol 206 mg/dL (140-199); Estimated Glomerular Filt Rate > 60 mL/min (>60); Globulin 3.5 g/dL (1.7-4.1); Glucose 102 mg/dL (70-100); HDL Cholesterol 39 mg/dL (40-60); HEMOLYSIS < 15 (0-50); LDL Cholesterol Calculated 127 mg/dL (<100); Potassium 4.6 mmol/L (3.4-5.1); Sodium 139 mmol/L (137-145); Triglycerides 202 mg/dL (35-150)
[2022-09-28 09:09] LABS: Prostate Specific Antigen Scrn 0.818 ng/mL (0.1-4.0)
[2022-09-28 17:28] LABS: Hep C Virus Ab w/Reflex Quant NEGATIVE s/c (NEGATIVE)
[2022-09-28 18:40] LABS: Microalbumi Creatinin Ratio Ur 7.2 ug/mg CR (<30)
== END ==
PROVIDERS: PCP Family Medicine; Referring Provider Family Medicine; Visit Provider Family Medicine
DX: Z12.5 Encounter for screening for malignant neoplasm of prostate (principal); E78.2 Mixed hyperlipidemia; J38.6 Stenosis of larynx; K21.9 Gastro-esophageal reflux disease without esophagitis
CPT/HCPCS: 36415; 80053; 80061; 82043; 82570; 84443; 85025; 86803; G0103

== ENCOUNTER → 2022-12-02 12:03 | Outpatient (CLI) | payer OTHER, SELFPAY ==
--- NOTE | 2022-12-02 12:05 | DI.RAD.S_ITS ---
PROCEDURE: XR CHEST 2V INDICATIONS: bleeding post procedure TECHNIQUE: 2 views of the chest were acquired. COMPARISON: [facility], CR, XR CHEST 1V, 04/28/2022, 6:29. FINDINGS: Surgical changes and devices: Surgical clips are noted superimposed over the left upper quadrant. Lungs and pleura: Lungs are clear. No pleural effusions or pneumothorax. Mediastinum: Mediastinal contours are normal. Heart size is normal. Bones and chest wall: No suspicious bony abnormalities. Soft tissues appear unremarkable. IMPRESSION: No acute cardiopulmonary abnormality. Dictated by: Adbiel Alvarado M.D. on 12/02/2022 at 13:58 Approved by: Abdiel Alvarado M.D. on 12/02/2022 at 13:58
== END ==
PROVIDERS: PCP Family Medicine; Referring Provider Family Medicine; Visit Provider Family Medicine
DX: J38.6 Stenosis of larynx (principal); J45.990 Exercise induced bronchospasm; R04.1 Hemorrhage from throat
CPT/HCPCS: 71046

== ENCOUNTER → 2023-02-02 08:48 | Outpatient (CLI) | payer OTHER, SELFPAY ==
--- NOTE | 2023-02-02 | DI.CT.S_ITS ---
PROCEDURE: CT CHEST WO CON INDICATIONS: Shortness of breath TECHNIQUE: Noncontrast 5 mm thick sections acquired from the pulmonary apices to the posterior costophrenic angles. 1 mm lung window, 5 mm thick coronal and sagittal and 7 mm axial MIP reformats were then acquired. For radiation dose reduction, the following was used: automated exposure control, adjustment of mA and/or kV according to patient size. COMPARISON: [facility], CR, XR CHEST 2V, 12/02/2022, 12:15. FINDINGS: Image quality: Excellent. Lungs and pleura: No acute air space opacities. No pleural effusions or pneumothorax. Central and peripheral airways are patent and normal in caliber. Right lateral lower lobe pleural-based solid nodule measuring 6 mm, is noted. Occasional punctate calcifications present in both lungs. No other nodules or suspicious mass. Mediastinum: Heart size is normal. No pericardial effusion. No mediastinal adenopathy by size criteria. Thoracic aorta and central pulmonary arteries are normal in size. Esophagus is normal in caliber. No hiatal hernia. Bones and chest wall: No suspicious bony lesions. No vertebral body compression fractures. No axillary or supraclavicular adenopathy by size criteria. Thyroid gland has a normal appearance . Abdomen: There are surgical changes of prior splenectomy and a few irregular soft tissue nodules remaining in the left upper quadrant compatible with splenosis. Upper abdominal organs are otherwise normal as visualized. IMPRESSION: 1. No finding to suggest chronic interstitial lung disease. 2. 6 mm right lower lobe solid solitary lung nodule, nonspecific. Recommend 6-12 month follow-up chest CT based on risk factors to begin to document benign nature. 3. Prior splenectomy and residual splenosis. Dictated by: Rupali Bowers M.D. on 02/02/2023 at 14:15 Approved by: Rupali Bowers M.D. on 02/02/2023 at 14:21
--- NOTE | 2023-02-06 07:38 | PM.PFT.1 ---
Pulmonary Function Test Referral & Results Date Patient Seen: 02/02/23 Results: The spirometry demonstrates an FVC of 4.44 L which is 78% of predicted. The FEV1 was measured at 3.46 L which is 80% of predicted. The FEV1/FVC ratio was 78 which is 102% of predicted. Following the administration of bronchodilator there was 19% improvement in FEV1 and a 99% improvement in FEF 25-75%. Lung volumes show an SVC of 5.16 L which is 93% of predicted. The diffusing capacity was measured at 37.44 which is 95% of predicted. The maximum voluntary ventilation was normal Interpretation: This study demonstrates possibly mild obstructive lung disease based on reduction FEV1 although FEV1/FVC ratio is preserved. There is however notable and significant benefit after bronchodilator administration particularly in small airway flow as above Lung volumes and diffusing capacity are normal Clinical correlation suggested
== END ==
PROVIDERS: PCP Family Medicine; Referring Provider Internal Medicine Pulmonary Disease; Visit Provider Internal Medicine Pulmonary Disease
DX: R06.02 Shortness of breath (principal); Z87.891 Personal history of nicotine dependence
CPT/HCPCS: 71250; 94060; 94726; 94729

== ENCOUNTER → 2023-10-25 06:54 | Outpatient (CLI) | payer OTHER, SELFPAY ==
[2023-10-25 07:47] LABS: Add Manual Diff / Slide Review NO; Basophils Absolute Auto 100 /uL (0-100); Basophils Percent Auto 1.2 % (0-2); Eosinophils Absolute Auto 100 /uL (0-450); Eosinophils Percent Auto 2.5 % (2-4); Hematocrit 41.7 % (41-53); Hemoglobin 14.2 g/dL (13.5-17.5); Lymphocytes Absolute Auto 2200 /uL (1100-4500); Mean Corpuscular HGB Conc 33.9 % (30-36); Mean Corpuscular Hemoglobin 32.6 PG (26-34); Mean Corpuscular Volume 96.1 fL (80-100); Monocytes Absolute Auto 600 /uL (0-900); Neutrophils Absolute Auto 1900 /uL (1500-7000); Neutrophils Percent Auto 38.3 % (50-75); Platelet Count 311 X10^3/uL (150-400); Red Blood Cell Count 4.34 X10^6/uL (4.5-5.9); Red Cell Distribution Width 13.1 % (11.6-14.8)
[2023-10-25 08:09] LABS: Alanine Aminotransferase 47 IU/L (<50); Albumin 4.4 g/dL (3.5-5.0); Albumin Globulin Ratio 1.4 (1.0-2.8); Alkaline Phosphatase 60 U/L (38-126); Aspartate Aminotransferase 49 IU/L (17-59); Blood Urea Nitrogen 20 mg/dL (9-20); Calcium 9.8 mg/dL (8.4-10.2); Carbon Dioxide 25 mmol/L (22-32); Chloride 104 mmol/L (98-107); Cholesterol 162 mg/dL (140-199); Estimated Glomerular Filt Rate > 60 mL/min (>60); Globulin 3.2 g/dL (1.7-4.1); Glucose 92 mg/dL (70-100); HDL Cholesterol 35 mg/dL (40-60); HEMOLYSIS < 15 (0-50); LDL Cholesterol Calculated 106 mg/dL (<100); Potassium 4.4 mmol/L (3.4-5.1); Sodium 138 mmol/L (137-145); Total Protein 7.6 g/dL (6.3-8.2); Triglycerides 106 mg/dL (35-150)
[2023-10-25 08:28] LABS: Creatinine Urine Random 246.3 mg/dL
[2023-10-25 08:33] LABS: Microalbumi Creatinin Ratio Ur 7.3 ug/mg CR (<30); Microalbumin Urine Random 1.8 mg/dL (0-1.6)
[2023-10-25 08:36] LABS: Prostate Specific Antigen Scrn 0.667 ng/mL (0.1-4.0)
[2023-10-25 17:43] LABS: Hep C Virus Ab w/Reflex Quant NEGATIVE s/c (NEGATIVE)
[2023-10-26 07:10] LABS: Apolipoprotein B 90 mg/dL (<90)
== END ==
PROVIDERS: PCP Family Medicine; Referring Provider Family Medicine; Visit Provider Family Medicine
DX: Z90.81 Acquired absence of spleen (principal); E78.5 Hyperlipidemia, unspecified; K21.9 Gastro-esophageal reflux disease without esophagitis; K22.4 Dyskinesia of esophagus; J38.6 Stenosis of larynx; Z12.5 Encounter for screening for malignant neoplasm of prostate
CPT/HCPCS: 36415; 80053; 80061; 82043; 82172; 82570; 85025; 86803; G0103

== ENCOUNTER → 2023-11-21 10:09 | Outpatient (CLI) | payer OTHER, SELFPAY ==
--- NOTE | 2023-11-21 10:10 | DI.CT.S_ITS ---
PROCEDURE: CT CHEST WO CON INDICATIONS: pulmonary nodule TECHNIQUE: Noncontrast 2.0-2.5 mm thick sections acquired from the pulmonary apices to the posterior costophrenic angles. 7 mm thick axial MIP and 5 mm coronal and sagittal reformats were then acquired. For radiation dose reduction, the following was used: automated exposure control, adjustment of mA and/or kV according to patient size. COMPARISON: [facility], CT, CT CHEST WO [facility], 02/02/2023, 10:14. FINDINGS: Image quality: Diagnostic. Lower Neck: No enlarged lymph nodes. Thyroid: No thyroid nodules which require sonographic follow up, per consensus guidelines. Axillae: No enlarged lymph nodes. Chest Wall: Unremarkable. Bones: Unremarkable. Lungs and Pleura: No pneumothorax or pleural effusions. No consolidation or suspicious nodules. 3 mm solid left lower lobe subpleural nodule 178/3, benign 5 mm right lower lobe juxtapleural nodule appears unchanged 178/3, benign 4 mm right middle lobe solid nodule, unchanged was 65/3, benign 4 mm nodule right upper lobe, solid 79/3, benign Heart: Heart size is normal. No pericardial effusion. Thoracic Vessels: The aorta and pulmonary arteries demonstrate normal size. Mediastinum and Mary: No enlarged lymph nodes. Esophagus: No wall thickening. No hiatal hernia. Upper Abdomen: Nonvisualized spleen. Surgical material in the left upper quadrant. IMPRESSION: 1. The right juxtapleural nodule again noted, benign appearing and unchanged in size at 5 mm. Several other smaller and benign appearing nodules noted. No further follow-up of these pulmonary nodules is necessary Fleischner Society criteria for SOLID lung nodule followup. Nodule size (mm)Low-risk patientHigh-risk patient<6 (single or multiple)No routine followup.Optional CT at 12 months. 6-8 (single or multiple)CT at 6-12 months, then optional CT at 18-24 mo.CT at 6-12 months, then CT at 18-24 months. >8 (single)CT at 3 months, PET-CT, or biopsy. Same as for low-risk pts. >8 (multiple)CT at 3-6 months, then optional CT at 18-24 mo.CT at 3-6 months, then CT at 18-24 months. Fleischner Society criteria for SUB-SOLID lung nodule followup. Solitary pure ground-glass nodules<6 mm (ground glass or part solid)No followup needed. 6 mm or larger (ground glass)CT at 6-12 months to confirm persistence, then CT every 2 years until 5 years.6 mm or larger (part solid)CT at 3-6 months to confirm persistence, then annual CT until 5 years if unchanged and solid component remains <6 mm. Multiple sub-solid nodules<6 mmCT at 3-6 months, then CT consider at 2 & 4 years for high risk patients. [address] at 3-6 months. Subsequent management based on most suspicious lesions. Recommendations do not apply to lung cancer screening, patients with immunosuppression, or patients with known primary cancer. Dictated by: Xiang Priest M.D. on 11/21/2023 at 12:45 Approved by: Xiang Priest M.D. on 11/21/2023 at 13:42
--- NOTE | 2023-11-21 10:10 | DI.US.S_ITS ---
PROCEDURE: US CAROTID DOPPLER BI INDICATIONS: HISTORY OF STENOSIS TECHNIQUE: Color and pulse Doppler interrogation was performed of both carotid systems, with image documentation and velocity measurements. COMPARISON: [facility], US, US CAROTID DOPPLER BI, 07/22/2021, 11:11. FINDINGS: Stenosis calculations are based on SRU (Society of Radiologists in Ultrasound) criteria. Right side: Brachial blood pressure: 123/72 mm Hg. Common carotid artery peak systolic velocity: 109 cm/sec. Internal carotid artery peak systolic velocity: 82 cm/sec. Internal carotid artery end diastolic velocity: 31 cm/sec. External carotid artery peak systolic velocity: 129 cm/sec. ICA/CCA peak systolic ratio: 0.8 . Alejandro scale imaging description: Mild plaque Percent internal carotid artery stenosis: Less than 50% . Vertebral artery: Flow direction is antegrade. Left side: Brachial blood pressure: 116/75 mm Hg. Common carotid artery peak systolic velocity: 166 cm/sec. Internal carotid artery peak systolic velocity: 86 cm/sec. Internal carotid artery end diastolic velocity: 31 cm/sec. External carotid artery peak systolic velocity: 106 cm/sec. ICA/CCA peak systolic ratio: 0.5 . Alejandro scale imaging description: Mild plaque Percent internal carotid artery stenosis: Less than 50% . Vertebral artery: Flow direction is antegrade. IMPRESSION: Less than 50% stenosis of the internal carotid arteries bilaterally. No interval change. Dictated by: Ghazal Lerma M.D. on 11/21/2023 at 12:51 Approved by: Ghazal Lerma M.D. on 11/21/2023 at 12:52
== END ==
PROVIDERS: PCP Family Medicine; Referring Provider Family Medicine; Visit Provider Family Medicine
DX: I65.23 Occlusion and stenosis of bilateral carotid arteries (principal); R91.8 Other nonspecific abnormal finding of lung field
CPT/HCPCS: 71250; 93880

== ENCOUNTER 2023-12-10 21:26 | Emergency (ER) | payer OTHER, SELFPAY ==
[2023-12-10 21:36] VITALS: BP 139/85; PULSE 69; RESP 16; TEMP 36.8; O2SAT 98; BMI 29.5
--- NOTE | 2023-12-10 22:53 | PC.NURSE ---
Came came out to the nursing station stating he was going to leave and follow up tomorrow at the [facility]. Patient ambulated without difficulty out the door.
== END 2023-12-10 22:54 | disposition left against medical advice (07) ==
PROVIDERS: Emergency Provider Emergency Medicine; PCP Family Medicine
DX: L02.222 Furuncle of back [any part, except buttock and flank] (principal)
CPT/HCPCS: 99281

== ENCOUNTER → 2023-12-12 10:35 | Outpatient (CLI) | payer OTHER, SELFPAY | PROVIDERS: PCP Family Medicine; Visit Provider Nurse Practitioner Family | DX: L72.3 Sebaceous cyst (principal) | CPT/HCPCS: 87070; 87205 ==

== ENCOUNTER → 2024-05-05 09:40 | Outpatient (CLI) | payer OTHER, SELFPAY ==
--- NOTE | 2024-05-05 09:41 | DI.CT.S_ITS ---
PROCEDURE: CT CHEST WO CON INDICATIONS: Due for f/u imaging, see pulm notes TECHNIQUE: Noncontrast 5 mm thick sections acquired from the pulmonary apices to the posterior costophrenic angles. 1 mm lung window, 5 mm thick coronal and sagittal and 7 mm axial MIP reformats were then acquired. For radiation dose reduction, the following was used: automated exposure control, adjustment of mA and/or kV according to patient size. COMPARISON: [facility], CT, CT CHEST WO CON, 11/21/2023, 10:44. FINDINGS: Image quality: Diagnostic. Lower Neck: No enlarged lymph nodes. Thyroid: No thyroid nodules which require sonographic follow up, per consensus guidelines. Axillae: No enlarged lymph nodes. Chest Wall: Unremarkable. Bones: Unremarkable. Lungs and Pleura: No pneumothorax or pleural effusions. Juxtapleural nodules with smooth margins, favoring benign intrapulmonary lymph nodes. Multiple solid pulmonary nodules, which appears similar to prior. Examples include: -stable 5 x 4 millimeters solid nodule, right upper lobe (series 3, image 84). -stable 3 millimeter solid nodule, left lower lobe (series 3, image 206). Heart: Heart size is normal. No pericardial effusion. Marked LAD calcifications for age. Thoracic Vessels: The aorta and pulmonary arteries demonstrate normal size. Mediastinum and Mary: No enlarged lymph nodes. Esophagus: No wall thickening. No hiatal hernia. Upper Abdomen: Splenectomy. Left upper lobe splenosis. IMPRESSION: Stable solid pulmonary nodule since 02/02/2023, largest measuring 5 x 4 millimeter. These are statistically benign per Fleischner society guidelines. Dictated by: Pablito Lund M.D. on 05/05/2024 at 13:29 Approved by: Pablito Lund M.D. on 05/05/2024 at 13:32
== END ==
PROVIDERS: PCP Family Medicine; Referring Provider Family Medicine; Visit Provider Family Medicine
DX: R91.8 Other nonspecific abnormal finding of lung field (principal); I25.10 Atherosclerotic heart disease of native coronary artery without angina pectoris
CPT/HCPCS: 71250

== ENCOUNTER → 2024-10-13 14:29 | Outpatient (CLI) | payer OTHER, SELFPAY ==
[2024-10-13 16:42] LABS: Add Manual Diff / Slide Review NO; Basophils Absolute Auto 100 /uL (0-100); Basophils Percent Auto 0.7 % (0-2); Eosinophils Absolute Auto 200 /uL (0-450); Eosinophils Percent Auto 1.8 % (2-4); Hemoglobin 14.3 g/dL (13.5-17.5); Lymphocytes Absolute Auto 3100 /uL (1100-4500); Lymphocytes Percent Auto 34.6 % (25-40); Mean Corpuscular Hemoglobin 32.9 PG (26-34); Mean Corpuscular Volume 96.9 fL (80-100); Monocytes Absolute Auto 800 /uL (0-900); Monocytes Percent Auto 9.4 % (3-14); Neutrophils Absolute Auto 4700 /uL (1500-7000); Neutrophils Percent Auto 53.5 % (50-75); Platelet Count 362 X10^3/uL (150-400); Red Blood Cell Count 4.33 X10^6/uL (4.5-5.9); Red Cell Distribution Width 13.1 % (11.6-14.8); White Blood Cell Count 8.8 X10^3/uL (4.5-11.0)
[2024-10-13 17:03] LABS: Alanine Aminotransferase 40 IU/L (<50); Albumin 4.8 g/dL (3.5-5.0); Albumin Globulin Ratio 1.5 (1.0-2.8); Alkaline Phosphatase 80 U/L (38-126); Aspartate Aminotransferase 47 IU/L (17-59); BUN Creatinine Ratio 17.9 (6-22); Bilirubin Total 0.6 mg/dL (0.2-1.3); Blood Urea Nitrogen 14 mg/dL (9-20); Calcium 9.3 mg/dL (8.4-10.2); Carbon Dioxide 26 mmol/L (22-32); Chloride 105 mmol/L (98-107); Cholesterol 169 mg/dL (140-199); Estimated Glomerular Filt Rate > 60 mL/min (>60); Globulin 3.1 g/dL (1.7-4.1); Glucose 97 mg/dL (80-110); HDL Cholesterol 51 mg/dL (40-60); HEMOLYSIS < 15 (0-50); LDL Cholesterol Calculated 97 mg/dL (<100); Potassium 4.1 mmol/L (3.4-5.1); Sodium 140 mmol/L (137-145); Total Protein 7.9 g/dL (6.3-8.2); Triglycerides 107 mg/dL (35-150)
[2024-10-13 17:34] LABS: Prostate Specific Antigen Scrn 0.869 ng/mL (0.1-4.0)
== END ==
PROVIDERS: PCP Family Medicine; Referring Provider Family Medicine; Visit Provider Family Medicine
DX: Z12.5 Encounter for screening for malignant neoplasm of prostate (principal); E78.2 Mixed hyperlipidemia; I10 Essential (primary) hypertension; R47.89 Other speech disturbances; R51.9 Headache, unspecified; E78.5 Hyperlipidemia, unspecified; M54.2 Cervicalgia; R41.3 Other amnesia
CPT/HCPCS: 36415; 80053; 80061; 84443; 85025; G0103

== ENCOUNTER → 2024-10-14 13:11 | Outpatient (CLI) | payer OTHER, SELFPAY ==
--- NOTE | 2024-10-14 13:30 | DI.CT.S_ITS ---
PROCEDURE: CT ANGIO HEAD AND NECK INDICATIONS: Word finding difficulty, memory issues, headache TECHNIQUE: After the administration of intravenous contrast, 1 mm thick sections acquired from the aortic arch through the [place] of Mae. 3-dimensional wmjcsfb-[id number]-[id number] (MIP) and/or volume rendering reformats were acquired of the central intracranial vasculature and neck separately. For radiation dose reduction, the following was used: automated exposure control, adjustment of mA and/or kV according to patient size. COMPARISON: [facility], , CAROTID DOPPLER BI, 11/21/2023, 10:20. FINDINGS: Image quality: Diagnostic. BRAIN: CSF spaces: Ventricles are normal in size and shape. Basal cisterns are patent. No extra-axial fluid collections. Brain: No significant abnormality of the brain can be seen. Skull and face: Calvarium and facial bones appear intact, without suspicious lesions. Orbits appear normal. Sinuses: Sinuses and mastoids are clear. HEAD CT ANGIOGRAPHY: Anterior circulation: Intracranial internal carotid arteries are normal in size and flow. The flow within the paired anterior cerebral arteries is normal and symmetric. The flow within the middle cerebral arteries is normal and symmetric. The anterior communicating artery is seen. No aneurysms are seen. Posterior circulation: Visualized portions of the vertebral arteries demonstrate normal caliber, and join to form a normal appearing basilar artery. Flow within the posterior cerebral arteries is normal and symmetric. No aneurysms are seen. NECK CT ANGIOGRAPHY: Carotid system: The great vessels demonstrate a conventional anatomy as they arise from the aortic arch. The origins of the common carotid arteries appear patent. The common carotid arteries demonstrate normal caliber and courses. The bifurcation regions are both widely patent. The internal carotid arteries demonstrate normal calibers and courses. Posterior circulation: The origins of the vertebral arteries both appear widely patent. The more superior extracranial portions of both vertebral arteries also demonstrate normal courses and calibers. They join to form a normal appearing basilar artery. Soft tissues: Visualized neck soft tissues demonstrate no suspicious abnormalities. Bones: No suspicious bony lesions. Visualized cervical spine appears normally aligned. IMPRESSION: No significant intracranial arterial abnormality is seen. No significant abnormality is seen within the arteries of the neck. Comment: If suspect acute stroke, recommend brain MRI. Any quantitative measurements of stenosis were performed using NASCET criteria. Dictated by: Albert Otoole M.D. on 10/14/2024 at 15:40 Approved by: Albert Otoole M.D. on 10/14/2024 at 15:47
[2024-10-14 16:18] LABS: Creatinine Urine Random 64.25 mg/dL
[2024-10-14 16:22] LABS: Microalbumin Urine Random 0.7 mg/dL (0-1.6)
== END ==
PROVIDERS: PCP Family Medicine; Referring Provider Physician Assistant; Visit Provider Family Medicine
DX: R51.9 Headache, unspecified (principal); R47.89 Other speech disturbances; R41.3 Other amnesia; E78.2 Mixed hyperlipidemia; I10 Essential (primary) hypertension; M54.2 Cervicalgia
CPT/HCPCS: 70496; 70498; 82043; 82570; Q9967

== ENCOUNTER → 2024-11-04 13:09 | Outpatient (CLI) | payer OTHER, SELFPAY ==
[2024-11-04 17:24] LABS: Estradiol, Total 24.7 pg/mL
[2024-11-05 04:11] LABS: Sex Hormone Binding Globulin 31.8 nmol/L (19.3-76.4)
== END ==
PROVIDERS: PCP Family Medicine; Referring Provider Family Medicine; Visit Provider Specialist
DX: R68.82 Decreased libido (principal); R97.20 Elevated prostate specific antigen [PSA]
CPT/HCPCS: 36415; 82670; 84270; 84402; 84403

== ENCOUNTER → 2025-01-05 06:57 | Outpatient (CLI) | payer OTHER, SELFPAY ==
[2025-01-05 07:39] LABS: Add Manual Diff / Slide Review NO; Basophils Absolute Auto 0 /uL (0-100); Basophils Percent Auto 0.9 % (0-2); Eosinophils Absolute Auto 200 /uL (0-450); Eosinophils Percent Auto 2.9 % (2-4); Hematocrit 43.9 % (41-53); Lymphocytes Absolute Auto 1900 /uL (1100-4500); Lymphocytes Percent Auto 33.8 % (25-40); Mean Corpuscular HGB Conc 34.2 % (30-36); Mean Corpuscular Volume 96.7 fL (80-100); Monocytes Absolute Auto 600 /uL (0-900); Monocytes Percent Auto 10.1 % (3-14); Neutrophils Absolute Auto 2900 /uL (1500-7000); Neutrophils Percent Auto 52.3 % (50-75); Platelet Count 298 X10^3/uL (150-400); Red Blood Cell Count 4.54 X10^6/uL (4.5-5.9); White Blood Cell Count 5.5 X10^3/uL (4.5-11.0)
[2025-01-05 07:56] LABS: Hemoglobin A1C% w Est Avg Glu 4.9 % (4.0-6.0)
[2025-01-05 07:57] LABS: Alanine Aminotransferase 32 IU/L (<50); Albumin 4.4 g/dL (3.5-5.0); Albumin Globulin Ratio 1.5 (1.0-2.8); Alkaline Phosphatase 74 U/L (38-126); Aspartate Aminotransferase 44 IU/L (17-59); BUN Creatinine Ratio 14.9 (6-22); Bilirubin Total 0.6 mg/dL (0.2-1.3); Blood Urea Nitrogen 14 mg/dL (9-20); Calcium 9.7 mg/dL (8.4-10.2); Carbon Dioxide 24 mmol/L (22-32); Chloride 106 mmol/L (98-107); Cholesterol 140 mg/dL (140-199); Estimated Glomerular Filt Rate > 60 mL/min (>60); Globulin 2.9 g/dL (1.7-4.1); Glucose 99 mg/dL (80-110); HDL Cholesterol 42 mg/dL (40-60); HEMOLYSIS < 15 (0-50); LDL Cholesterol Calculated 84 mg/dL (<100); Potassium 4.5 mmol/L (3.4-5.1); Sodium 140 mmol/L (137-145); Total Protein 7.3 g/dL (6.3-8.2); Triglycerides 71 mg/dL (35-150)
[2025-01-05 08:14] LABS: Follicle Stimulating Hormone < 0.66 mIU/mL
[2025-01-07 12:36] LABS: Estrone,Serum 29 pg/mL (0-174)
[2025-01-13 08:36] LABS: Testosterone % Fr + Wkly bound 29.2 % (9.0-46.0); Testosterone Fr+Wkly bound 188.6 ng/dL (40.0-250.0); Testosterone, Total 645.8 ng/dL (264.0-916.0)
== END ==
PROVIDERS: Family Provider Family Medicine; PCP Family Medicine; Referring Provider Specialist; Visit Provider Specialist
DX: Z51.81 Encounter for therapeutic drug level monitoring (principal); R73.09 Other abnormal glucose; I10 Essential (primary) hypertension; E66.3 Overweight
CPT/HCPCS: 80053; 80061; 82679; 83001; 83036; 84153; 84154; 84403; 84443; 85025